=== PATIENT | male | born 1960 | race Caucasian/White ===

== ENCOUNTER 2016-12-31 07:12 | Inpatient (IN) | payer BC ==
[~2016-12-31] VITALS: Ht 182.9 cm; Wt 95.3 kg
[2016-12-31 07:15] VITALS: BP_SYST 138
[2016-12-31] MEDS ORDERED: ONDANSETRON HCL 4 MG/2 ML VIAL IVP ONE (08:00)
[2016-12-31] MEDS ORDERED: MECLIZINE HCL 25 MG TABLET (ANITVERT) PO ONE (08:00)
[2016-12-31 08:10] LABS: BASOPHILS % (AUTO) 0.7 % (0.0-2.0); EOSINOPHILS # (AUTO) 0.1 K/uL (0.0-0.4); EOSINOPHILS % (AUTO) 1.2 % (0.0-4.0); HEMATOCRIT 44.5 % (36-54); HEMOGLOBIN 14.8 g/dL (14.0-18.0); LYMPHOCYTES # (AUTO) 0.9 K/uL (1.0-5.5); LYMPHOCYTES % (AUTO) 20.6 % (20.5-51.5); MEAN CORPUSCULAR HEMOGLOBIN 29 pg (27-31); MEAN CORPUSCULAR HGB CONC 33 % (32-36); MEAN CORPUSCULAR VOLUME 88 fL (79.0-98.0); MONOCYTES # (AUTO) 0.3 K/uL (0.0-1.0); MONOCYTES % (AUTO) 6.7 % (1.7-9.3); NEUTROPHILS # (AUTO) 3.2 K/uL (1.8-7.7); NEUTROPHILS % (AUTO) 70.8 % (40.0-70.0); PLATELET COUNT (AUTO) 170 K/uL (130-430); RED BLOOD CELL COUNT(AUTO) 5.07 MIL/uL (4.2-6.2); RED CELL DISTRIBUTION WIDTH 12.2 % (9.0-15.0); WHITE BLOOD COUNT (AUTO) 4.5 K/uL (4.8-10.8)
[2016-12-31 08:20] LABS: ANION GAP 8 (5-15); CALCIUM 8.7 mg/dL (8.4-11.0); CHLORIDE 106 mmol/L (98-107); CREATININE 1.36 mg/dL (0.55-1.30); GLUCOSE 138 mg/dL (70-99); POTASSIUM 3.6 mmol/L (3.5-5.1); SODIUM SERUM 139 mmol/L (136-145); UREA NITROGEN, BLOOD 27 mg/dL (8-21)
[2016-12-31 08:23] LABS: PROTHROMBIN TIME 11.1 SECS (9.5-12.5)
[2016-12-31 08:24] LABS: ALANINE AMINOTRANSFERASE 21 U/L (12-78); ALBUMIN 3.9 g/dL (3.4-4.8); ASPARTATE AMINOTRANSFERASE 22 U/L (10-37); LIPASE 117 U/L (73-393); TOTAL BILIRUBIN 0.6 mg/dL (0.0-1.0)
[2016-12-31 08:37] LABS: GFR AFRICAN AMERICAN 69 mL/min (>90)
[2016-12-31 08:38] LABS: ALCOHOL, BLOOD < 3 mg/dL (<10)
[2016-12-31] MEDS ORDERED: ASPIRIN 325 MG TABLET PO ONE (09:30)
[2016-12-31 09:42] LABS: BILIRUBIN,URINE NEGATIVE (NEGATIVE); BLOOD, URINE NEGATIVE (NEGATIVE); CLARITY/URINE CLEAR (CLEAR); COLOR,URINE YELLOW (YELLOW); GLUCOSE,URINE NEGATIVE (NEGATIVE); KETONES,URINE NEGATIVE (NEGATIVE); LEUKOCYTE ESTERASE ,URINE NEGATIVE (NEGATIVE); NITRITE, URINE NEGATIVE (NEGATIVE); PH,URINE 7.5 (5.0-8.0); PROTEIN URINE NEGATIVE (NEGATIVE); UROBILINOGEN,URINE 0.2 (0.2-1.0)
[2016-12-31] MEDS ORDERED: MECLIZINE HCL 25 MG TABLET (ANITVERT) PO PRN (10:15)
[2016-12-31] MEDS ORDERED: ONDANSETRON 4 MG ODT TAB PO PRN (10:15)
[2016-12-31 12:24] VITALS: BP_SYST 121
[2016-12-31] MEDS: 0.45% NACL 1,000 ML IV SCH (13:16)
[2016-12-31] MEDS ORDERED: GADOPENTETATE DIMEGLUMINE 15 ML VIAL IV ONE (13:44)
[2016-12-31 16:05] VITALS: BP_SYST 121
[2016-12-31 20:00] VITALS: BP_SYST 124
[2016-12-31] MEDS ORDERED: IBUPROFEN 400 MG TABLET PO PRN (22:30)
[2016-12-31 23:49] VITALS: BP_SYST 100
[2016-12-31 23:53] VITALS: BP_SYST 121
[2017-01-01 03:47] VITALS: BP_SYST 108
[2017-01-01] MEDS: 0.45% NACL 1,000 ML IV SCH (04:48)
[2017-01-01 07:32] LABS: BASOPHILS % (AUTO) 0.4 % (0.0-2.0); EOSINOPHILS # (AUTO) 0.1 K/uL (0.0-0.4); EOSINOPHILS % (AUTO) 1.3 % (0.0-4.0); HEMATOCRIT 42.9 % (36-54); HEMOGLOBIN 14.4 g/dL (14.0-18.0); LYMPHOCYTES # (AUTO) 1.4 K/uL (1.0-5.5); LYMPHOCYTES % (AUTO) 26.9 % (20.5-51.5); MEAN CORPUSCULAR HEMOGLOBIN 30 pg (27-31); MEAN CORPUSCULAR HGB CONC 34 % (32-36); MEAN CORPUSCULAR VOLUME 89 fL (79.0-98.0); MONOCYTES # (AUTO) 0.4 K/uL (0.0-1.0); MONOCYTES % (AUTO) 8.3 % (1.7-9.3); NEUTROPHILS # (AUTO) 3.3 K/uL (1.8-7.7); NEUTROPHILS % (AUTO) 63.1 % (40.0-70.0); PLATELET COUNT (AUTO) 173 K/uL (130-430); RED BLOOD CELL COUNT(AUTO) 4.83 MIL/uL (4.2-6.2); RED CELL DISTRIBUTION WIDTH 12.6 % (9.0-15.0); WHITE BLOOD COUNT (AUTO) 5.2 K/uL (4.8-10.8)
[2017-01-01 08:07] VITALS: BP_SYST 118
[2017-01-01 08:12] LABS: CALCIUM 8.4 mg/dL (8.4-11.0); CREATININE 1.37 mg/dL (0.55-1.30); POTASSIUM 4.1 mmol/L (3.5-5.1)
[2017-01-01] MEDS ORDERED: ASPIRIN 81 MG TABLET(ECOTRIN) PO SCH (09:00)
[2017-01-01] MEDS ORDERED: ENOXAPARIN SODIUM 40 MG/0.4 ML SYRINGE SUBCUT SCH (09:00)
[2017-01-01 12:18] VITALS: BP_SYST 124
[2017-01-01] MEDS ORDERED: MECL12.584 PO ×2 (15:01→15:07)
[2017-01-01 15:13] VITALS: BP_SYST 124
[2017-01-01 16:01] VITALS: BP_SYST 131
== END 2017-01-01 15:43 | disposition home or self-care (01) | DRG 149 ==
LOC: SED 07:12 → STU 10:09
PROVIDERS: ADMIT Internal Medicine; ATTEND Internal Medicine
DX: H81.20 Vestibular neuronitis, unspecified ear (principal); N40.0 Benign prostatic hyperplasia without lower urinary tract symptoms; H81.10 Benign paroxysmal vertigo, unspecified ear; K21.9 Gastro-esophageal reflux disease without esophagitis; Z80.3 Family history of malignant neoplasm of breast; Z80.41 Family history of malignant neoplasm of ovary
CPT/HCPCS: 36415; 70450-TC; 70553; 71010; 80048; 80053; 81003; 83690-TC; 84484; 85025; 85610-TC; 85730-TC; 93005; 93306; 93880; 96374; 99285; A9579; G0482; J1650; J2405; J8597